=== PATIENT | male | born 1950 | race Caucasian/White ===

== ENCOUNTER → 2016-08-27 | Outpatient (CLI) | payer OTHER, MEDICARE ==
[2016-08-27 17:50] LABS: ALT/SGPT 22 U/L (12-78); AST/SGOT 12 U/L (15-37); BLOOD UREA NITROGEN 20 mg/dl (7-18); BUN/CREATININE RATIO 16.6 (10-20); CALCIUM 9.5 mg/dl (8.5-10.1); CARBON DIOXIDE 33 mmol/L (21-32); CHLORIDE 101 mmol/L (98-107); GLUCOSE 136 mg/dl (70-99); POTASSIUM 3.6 mmol/L (3.5-5.1); SODIUM 142 mmol/L (136-145)
[2016-08-27 18:01] LABS: ALB/GLOB RATIO 1.2 (0.9-2); ALKALINE PHOSPHATASE 77 U/L (45-117)
[2016-08-27 18:03] LABS: RATIO 11.1 mcg/mg (0-30.0)
[2016-08-28 06:20] LABS: ESTIMATED AVERAGE GLUCOSE 114 mg/dl; HA1C FLAG Normal (Normal)
== END | disposition home or self-care (01) ==
LOC: C.LABBC 12:49
PROVIDERS: ATTEND Urology
DX: Z00.00 Encounter for general adult medical examination without abnormal findings (principal); E11.9 Type 2 diabetes mellitus without complications; I10 Essential (primary) hypertension; E53.8 Deficiency of other specified B group vitamins; Z11.59 Encounter for screening for other viral diseases; C61 Malignant neoplasm of prostate; J32.9 Chronic sinusitis, unspecified; J34.2 Deviated nasal septum; J30.1 Allergic rhinitis due to pollen